=== PATIENT | male | born 1965 | race Caucasian/White ===

== ENCOUNTER 2020-04-11 18:39 | Inpatient (IN) ==
--- NOTE | 2020-04-11 18:41 | Emergency Department Note ---
Impression & Plan Acute AR, Chest pain ED Provider Note NAME: ULI EASON AGE: 54 SEX: M : 1965 ARRIVES VIA: Ambulance INFORMANT: Patient, ED PROVIDER(S): Michele Winston MD Chief Complaint: Chest pain HPI: Patient states that chest pain began around 430 PM. 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 Patient states that it did not improve and worsened with exertion and activity. Patient did complain of some nausea and feeling sweaty but denies any vomiting. No infectious symptoms including cough fevers or chills. The patient does use smokeless tobacco but denies any recent alcohol or substance use. Patient does have a family history of father with AR in his 40s. Patient denies any lower extremity swelling. Patient did receive aspirin and 1 nitro in route. The patient had taken a dose of sildenafil 48 hours ago. Patient initially prehospital did have pressures in the systolic 190s. I did receive medical command call prior to arrival and did look it to previous EKGs have recommended 1 sublingual nitro prior to arrival given the patient's very elevated blood pressure. Patient did state initially his pain was 7 out of 10 currently 3 out of 10. ROS: See HPI for pertinent positives and negatives. A total of 10 systems were reviewed and otherwise negative. Past medical history: See below Surgical history: See below Social history: See below Physical Exam: GENERAL: Wearing glasses and a mask, nasal cannula in place. EYE EXAM: Normal conjunctiva. PERRL, no anisocoria and EOM's grossly intact w/o pain. NECK: Supple, no nuchal rigidity, no adenopathy, non-tender. No signs of m eningismus. LUNGS: Clear to auscultation. Normal chest wall mechanics. HEART: NSR, no MRG. ABDOMEN: Abdomen soft, non-tender, normo-active bowel sounds, no masses, no rebound or guarding. BACK: No CVA TTP. SKIN: No rashes and no bruising. UPPER EXTREMITIES: Upper extremities are grossly normal. LOWER EXTREMITIES: Grossly normal, no edema. NEURO EXAM: A&O x3, cranial nerves II-XII grossly intact, normal speech, moves all 4 extremities on command w/o issue. Differential diagnoses: Cardiac ischemia, aortic dissection, pulmonary embolism, pneumothorax, pneumonia, pericarditis, myocarditis, esophageal rupture, GERD, cholecystitis, pancreatitis, musculoskeletal, as well as other pathologies. Course: Patient was seen and evaluated the bedside. Full history physical exam was performed. EKG: Initial prehospital EKG Normal sinus rhythm, rate of 90, normal axis, mild concavity in 3 and aVF but does have reciprocal changes in V2 and V3 with depressions. Repeat prehospital EKG Normal sinus rhythm, rate of 93, normal intervals, normal axis, mild change in depressions in V2 and V3 with persistent concavity in 3 and aVF. In-hospital EKG completed at 1845 does show Normal sinus rhythm, rate of 85, normal intervals, normal axis, worsening concavity inferiorly, worsening depressions and changes anteriorly and laterally. Reciprocal changes are noted. Concerning for acute STEMI. Imaging Studies: Radiology results as stated below per my review in the radiologist's interpretation: Cardiac monitoring: An order was placed for continuous cardiac monitoring. The monitor shows a rate of 86 with sinus rhythm. MDM: Patient did present with concern for chest pain with changes on EKG concerning for evolving changes in acute STEMI once arriving in the emergency department. A heart alert was immediately called, Plavix load was ordered with additional medications to be given in the [facility]. Dr. Stanislav MD interventional cardiology was paged with the heart alert. I did speak to the on-call hospitalist Dr. Tabatha MD. Patient was admitted to the medicine service. Patient had a white count of 13 with a normal H&H and platelet count. The patient's kidney function was unremarkable. The patient's troponin was 0.194. Covid negative. Critical Care: I have personally spent 42 minutes of critical care time in direct management of this patient. This includes bedside care, interpretation of diagnostic studies, and testing, discussion with consultants, patient, and family members, and other require inpatient management activities. This 42 minutes is in excess of all separately billable procedures. Past Med/Surg History Medical History (Updated 04/11/20 @ 20:06 by Michele Winston MD) No pertinent past medical history Surgical History (Updated 04/11/20 @ 20:05 by Michele Winston MD) No pertinent past surgical history Social History (Updated 04/11/20 @ 20:06 by Michele Winston MD) Smoking Status: Current every day smoker Tobacco Type: Smokeless Tobacco (Dip or Chew) Hx Substance Use: No Feels Safe at Home: Yes Allergies Allergies Allergy/AdvReac Type Severity Reaction Status Date / Time No Known Allergies Allergy Verified 10/04/19 10:09 Home Meds Home Medications Medication Instructions Recorded Confirmed No Known Home Medications 10/04/19 10/04/19 Results & Data (ED) Vital Signs Vital Signs - 24 hr 04/11/20 18:45 04/11/20 18:59 04/11/20 19:20 Temperature 37.0 C Temperature Source Oral Pulse Rate 93 H 86 Respiratory Rate 20 20 Blood Pressure 121/74 120/69 Blood Pressure Mean 89 Pulse Oximetry 99 100 98 Oxygen Delivery Method Room Air Room Air Nasal Cannula Oxygen Flow Rate 2 Sepsis Recent Fever Within 48 Hours No Sepsis New/Unexplained Change in Mental Status No Sepsis Action Taken by Nursing No Action Required Home Medications Current Medication List: was personally reviewed by me Laboratory Data Attestation: I reviewed the patient's lab results. Result diagrams: 04/11/20 18:55 04/11/20 18:55 Lab Results 04/11/20 04/11/20 04/11/20 Range/Units 18:50 18:50 18:50 WBC (4.8-10.8) K/uL RBC (4.7-6.1) M/uL Hgb (14.0-18.0) g/dL Hct (42-52) % MCV (80-100) fL MCH (25-34) pg MCHC (32-36) g/dL RDW Std Deviation (36.4-46.3) fL RDW Coeff of Mihai (11.5-14.5) % Plt Count (130-400) K/uL MPV (7.4-10.4) fL Immature Gran % (Auto) % Neut % (Auto) % Lymph % (Auto) % [place] % (Auto) % Eos % (Auto) % Baso % (Auto) % Neut # (Auto) (1.4-6.5) K/uL Lymph # (Auto) (1.2-3.4) K/uL [place] # (Auto) (0.11-0.59) K/uL Eos # (Auto) (0-0.5) K/uL Baso # (Auto) (0-0.2) K/uL Immature Gran # (Auto) (0.00-0.02) K/uL PT (9.0-12.0) Seconds INR (0.9-1.1) APTT (21.0-31.0) Seconds PTT Ratio Sodium (136-145) mmol/L Potassium (3.5-5.1) mmol/L Chloride (98-107) mmol/L Carbon Dioxide (21-32) mmol/L Anion Gap (3-11) BUN (7-18) mg/dl Creatinine (0.6-1.4) mg/dl Est Cr Clr Drug Dosing ml/min Est GFR ( Amer) Est GFR (Non-Af Amer) BUN/Creatinine Ratio (10-20) Glucose (70-99) mg/dl Calcium (8.5-10.1) mg/dl Magnesium (1.8-2.4) mg/dl Total Bilirubin (0.2-1) mg/dl AST (15-37) U/L ALT (12-78) U/L Alkaline Phosphatase (45-117) U/L Total Creatine Kinase (39-308) U/L CK-MB (CK-2) (0.5-3.6) ng/ml CK/CKMB % Calc (0-3.0) Troponin I (0-0.045) ng/ml NT-Pro-B Natriuret Pep (0-900) pg/ml Total Protein (6.4-8.2) gm/dl Albumin (3.4-5.0) gm/dl Globulin (2.5-4.0) gm/dl Albumin/Globulin Ratio (0.9-2) Lipase (73-393) U/L TSH (0.300-4.500) uIu/ml COVID-19 Eval Order Covid19 IDNow [facility] SARS-CoV-2, RNA, NAAT NEGATIVE NEGATIVE (NEGATIVE) 04/11/20 04/11/20 04/11/20 Range/Units 18:55 18:55 18:55 WBC 13.87 H (4.8-10.8) K/uL RBC 5.18 (4.7-6.1) M/uL Hgb 14.2 (14.0-18.0) g/dL Hct 44.0 (42-52) % MCV 84.9 (80-100) fL MCH 27.4 (25-34) pg MCHC 32.3 (32-36) g/dL RDW Std Deviation 43.2 (36.4-46.3) fL RDW Coeff of Mihai 13.9 (11.5-14.5) % Plt Count 236 (130-400) K/uL MPV 9.4 (7.4-10.4) fL Immature Gran % (Auto) 0.2 % Neut % (Auto) 88.1 % Lymph % (Auto) 6.3 % [place] % (Auto) 4.8 % Eos % (Auto) 0.4 % Baso % (Auto) 0.2 % Neut # (Auto) 12.21 H (1.4-6.5) K/uL Lymph # (Auto) 0.88 L (1.2-3.4) K/uL [place] # (Auto) 0.67 H (0.11-0.59) K/uL Eos # (Auto) 0.05 (0-0.5) K/uL Baso # (Auto) 0.03 (0-0.2) K/uL Immature Gran # (Auto) 0.03 H (0.00-0.02) K/uL PT 11.1 (9.0-12.0) Seconds INR 1.1 (0.9-1.1) APTT 25.3 (21.0-31.0) Seconds PTT Ratio 0.9 Sodium 139 (136-145) mmol/L Potassium 4.4 (3.5-5.1) mmol/L Chloride 106 (98-107) mmol/L Carbon Dioxide 26 (21-32) mmol/L Anion Gap 7.0 (3-11) BUN 19 H (7-18) mg/dl Creatinine 1.13 (0.6-1.4) mg/dl Est Cr Clr Drug Dosing 86.9 ml/min Est GFR ( Amer) 83.8 Est GFR (Non-Af Amer) 72.3 BUN/Creatinine Ratio 16.9 (10-20) Glucose 90 (70-99) mg/dl Calcium 9.0 (8.5-10.1) mg/dl Magnesium 2.1 (1.8-2.4) mg/dl Total Bilirubin 0.5 (0.2-1) mg/dl AST 29 (15-37) U/L ALT 46 (12-78) U/L Alkaline Phosphatase 76 (45-117) U/L Total Creatine Kinase 198 (39-308) U/L CK-MB (CK-2) 5.6 H (0.5-3.6) ng/ml CK/CKMB % Calc 2.8 (0-3.0) Troponin I 0.194 H* (0-0.045) ng/ml NT-Pro-B Natriuret Pep 72 (0-900) pg/ml Total Protein 8.2 (6.4-8.2) gm/dl Albumin 4.2 (3.4-5.0) gm/dl Globulin 4.0 (2.5-4.0) gm/dl Albumin/Globulin Ratio 1.0 (0.9-2) Lipase 299 (73-393) U/L TSH 1.920 (0.300-4.500) uIu/ml COVID-19 Eval Order SARS-CoV-2, RNA, NAAT (NEGATIVE) Administered Medications Discontinued Medications Clopidogrel Bisulfate (Clopidogrel Bisulfate 300 Mg Tab) 300 mg PO NOW STA Stop: 04/11/20 18:51 Last Admin: 04/11/20 18:56 Dose: 300 mg Documented by: [id number] Discharge Plan Visit Data Chief Complaint: Chest Pain Stated Complaint: CHEST PAIN ED Provider: Michele Winston Discharge Problem: Acute AR, Chest pain Patient Disposition: Admitted As Inpatient Discharge Instructions Interventions: ED Discharge Assessment Last Done: 04/11/20 19:20 Discharge Problem: Acute AR Qualifiers: Myocardial infarction type: ST elevation myocardial infarction Involved coronary artery: unspecified coronary artery Qualified Code(s): I21.3 - ST elevation (STEMI) myocardial infarction of unspecified site Chest pain Qualifiers: Chest pain type: chest pain due to myocardial ischemia Ischemic chest pain type: unspecified angina pectoris type Qualified Code(s): I25.9 - Chronic ischemic heart disease, unspecified
[2020-04-11] MEDS ORDERED: CLOPIDOGREL BISULFATE 300 MG TAB PO STA (18:50)
[2020-04-11 19:05] LABS: Basophils # (auto) 0.03 K/uL (0-0.2); Basophils % (auto) 0.2 %; Eosinophils # (auto) 0.05 K/uL (0-0.5); Eosinophils % (auto) 0.4 %; Hemoglobin 14.2 g/dL (14.0-18.0); Immature Granulocytes # (auto) 0.03 K/uL (0.00-0.02); Immature Granulocytes % (auto) 0.2 %; Lymphocytes # (auto) 0.88 K/uL (1.2-3.4); Lymphocytes % (auto) 6.3 %; Mean Corpuscular Hemoglobin 27.4 pg (25-34); Mean Corpuscular Hgb Conc 32.3 g/dL (32-36); Mean Corpuscular Volume 84.9 fL (80-100); Mean Platelet Volume 9.4 fL (7.4-10.4); Monocytes # (auto) 0.67 K/uL (0.11-0.59); Monocytes % (auto) 4.8 %; Neutrophils # (auto) 12.21 K/uL (1.4-6.5); Neutrophils % (auto) 88.1 %; Platelet Count 236 K/uL (130-400); RDW Coefficient of Variation 13.9 % (11.5-14.5); RDW Standard Deviation 43.2 fL (36.4-46.3); Red Blood Count 5.18 M/uL (4.7-6.1); White Blood Count 13.87 K/uL (4.8-10.8)
[2020-04-11] MEDS ORDERED: niCARdipine HCL INJ 2.5 MG/ML 10 ML AMP ONE (19:10)
[2020-04-11] MEDS ORDERED: HEPARIN (PORCINE) 1000 UNIT/ML 10 ML (CATH LAB USE ONLY) ONE ×2 (19:10→20:03)
[2020-04-11] MEDS ORDERED: MIDAZOLAM HCL 1 MG/ML 2ML VIAL ONE ×2 (19:10→19:33)
--- NOTE | 2020-04-11 19:10 | Pre Anesthesia Assessment ---
Date of Service April 11, 2020 Pre Sedation Assessment Vital Signs Temp Pulse Resp BP Pulse Ox 04/11/20 18:59 100 04/11/20 18:45 98.6 F 93 H 20 121/74 99 Cardiovascular RRR, no murmur, no edema Respiratory normal respiratory effort, lungs clear to auscultation Pre-Sedation Airway Assessment Smoking Status: Never smoker Hx Sleep Apnea: No Hx Difficult Intubation: No Short, Thick Neck: No Thyromental Distance: > or= 3.5 Finger Breadths Oral Cavity: + WNL Mallampati Class: III ASA: ASA3 Procedure Planning Contraindications for Sedation: none Current Medications Reviewed: Yes Notes The planned sedation has been discussed with the patient. Informed Consent was obtained. I have identified the patient, determined the appropriateness of sedation and have assessed the patient immediately prior to the procedure. All medicine(s) and interventions are by my order.
[2020-04-11] MEDS ORDERED: fentaNYL citrate 100 MCG/2 ML VIAL ONE ×2 (19:11→19:58)
[2020-04-11] MEDS ORDERED: NITROGLYCERIN/D5W 100MCG/ML 20ML SYR ONE (19:11)
[2020-04-11 19:16] LABS: INR 1.1 (0.9-1.1); Partial Thromboplastin Ratio 0.9; Partial Thromboplastin Time 25.3 Seconds (21.0-31.0); Prothrombin Time 11.1 Seconds (9.0-12.0)
--- NOTE | 2020-04-11 19:16 | Cardiology Consultation ---
Date of Consultation April 11, 2020 Assessment & Plan (1) Acute WA: Presentation consistent with posterior STEMI and recommend proceeding with emergent cardiac catheterization and likely primary PCI. No apparent contraindications to procedure. Discussed risks, benefits, alternatives of procedure with patient and they are willing to proceed. Further recommendations pending findings of coronary angiography. History of Present Illness History of Present Illness Mr. Daniel is a 54-year-old man here with acute chest pain and ECG concerning for acute WA. Patient seen emergently in the ED after heart alert activated upon arrival. No prior cardiac history. Cardiac risk factors include a family history of premature coronary disease involving his father, first coronary event age 49. Other medical issues include osteoarthritis. On no medications. 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 Describes substernal pain radiating to his back. No associated shortness of breath, nausea, diaphoresis. Has never had similar pain in the past. Chest pain at its worst was a 7 out of 10, better after sublingual nitroglycerin in the ambulance. Presently chest pain 3 out of 10. Hemodynamically stable. EKG subtle inferior ST elevation and deep ST depressions in V1-V4 concerning for posterior STEMI. Allergies Allergy/AdvReac Type Severity Reaction Status Date / Time No Known Allergies Allergy Verified 10/04/19 10:09 Home Medications Medication Instructions Recorded Confirmed Type No Known Home Medications 10/04/19 10/04/19 History Patient History Medical History (Updated 04/11/20 @ 20:06 by Michele Winston MD) No pertinent past medical history Surgical History (Updated 04/11/20 @ 20:05 by Michele Winston MD) No pertinent past surgical history Social History (Updated 04/11/20 @ 20:06 by Michele Winston MD) Smoking Status: Current every day smoker Tobacco Type: Smokeless Tobacco (Dip or Chew) Hx Substance Use: No Feels Safe at Home: Yes Review of Systems Review of Systems: All systems reviewed & are unremarkable except as noted in HPI & below Physical Exam Physical Exam: General: Comfortable, no acute distress HEENT: Sclerae anicteric, mucous membranes moist Lungs: Clear to auscultation bilaterally Cardiac: Regular rate and rhythm, no murmurs. Abdomen: Soft, nontender, nondistended, positive bowel sounds. Extremities: Warm, well perfused, no edema. 2+ radial pulses Skin: No rashes or lesions. Neuro: Nonfocal Psych: Alert orient x3, normal affect and mood Results & Data ([facility]) Vital Signs (Past 12 Hours) Vital Signs Temp Pulse Resp BP Pulse Ox 04/11/20 18:59 100 04/11/20 18:45 98.6 F 93 H 20 121/74 99 PG Care Time/CCT Total # of Minutes Spent Total Time Spent with Patient: Total time spent is greater than 50% in coordination of care (as documented) at patient's floor/unit and/or counseling patient: Coding Level of Care Code 90261 Inpt Consult Level 4 Diagnoses Acute WA I21.9
--- NOTE | 2020-04-11 19:20 | Cardiac Catheterization ---
ACC Data: [employer] Cardiac Status Clinical evaluation leading to the procedure CAD Presenation: STEMI Anginal Classification: CCS IV Heart Failure: No Cardiogenic Shock within 24 Hours: No Cardiac Arrest within 24 Hours: No Imaging Studies Past 6 Months: No Stress Studies Past 6 Months: No Diagnostic Physicians Name: Romeo Colorado MD Status: Emergency Closure Device Percutaneous Entry Location: Radial Closure Device: Radial Band Recommendations: PCI without planned CABG PCI Indication: Immediate PCI for STEMI First Noted: First EKG Lesion Segment Name: Ostial circumflex Culprit Artery: Yes Stenosis Prior to Rx (%): 100 Chronic Total Occlusion: No IVUS: Yes FFR: No Pre-Procedure BRIGID Flow: 0 Previously Treated Lesion: No Lesion Complexity: High/C Lesion Length (mm): 15 Thrombus Present: Yes Bifurcation Lesion: Yes Guidewire Across Lesion: Stenosis Post-Procedure (%): 0 Post-Procedure BRIGID Flow: 3 Devices(s) Deployed: Yes Yes Lesion #2 Segment Name: Proximal D1 Culprit Artery: No Stenosis Prior to Rx (%): 90 Chronic Total Occlusion: No IVUS: No FFR: No Pre-Procedure BRIGID Flow: 3 Previously Treated Lesion: No Lesion Complexity: Non-High/Non-C Lesion Length (mm): 12 Thrombus Present: No Bifurcation Lesion: Yes Guidewire Across Lesion: Yes Stenosis Post-Procedure (%): 0 Post-Procedure BRIGDI Flow: 3 Devices(s) Deployed: Yes Intraprocedure Events Significant Disection: No Perforation: No Cardiac Cath Procedure Full Procedure Date April 11, 2020 Pre-Procedure Diagnosis Pre-Procedure Diagnosis: STEMI AUC Score AUC Score: 9 Post-Procedure Diagnosis Post-Procedure Diagnosis: Severe CAD and Successful PCI Procedure(s) Performed Procedure(s) Performed: Coronary Angiography, Left Heart Cath, Drug Eluting Stent and IVUS [place] Romeo Colorado MD Credit Balance Specialist(s) Christiano Estimated Blood Loss Estimated Blood Loss: 15 Medication(s) Medication(s): Dopamine, Fentanyl, Heparin, Integrilin, Lidocaine 1%, Nicardipine, Nitroglycerin, Norepinephrine and Versed Medication(s): Ticagrelor Summary of Findings Indication: STEMI/Heart Alert Access: 6R right radial artery Catheters: Dearing, EBU 3.5 guide Findings: LM -normal caliber, calcified, luminal irregularities LAD -medium caliber, 40% ostial, diffuse 30% proximal to mid disease, distal vessel without significant disease and wraps on apex. Large first diagonal with 90% proximal stenosis Circumflex -large caliber, 100% acute ostial occlusion RCA -dominant, large caliber, 30% lateproximal, 40% mid. PDA without significant disease. LVEDP -21 -- PCI -- Antithrombotic therapy: Heparin, Brilinta, Integrilin Procedure: Left main cannulated with EBU 3.5 guide Signal Repairer 50 wire passed across lesion into distal OM BMW wire placed in the LAD Proximal circumflex lesion predilated with 3.0 compliant balloon Dilated lesion stented with 3.5 x 18 mm Xience Harriet drug-eluting Brea IVUS pullback revealed mildly underexpanded stent proximally, without complete apposition at distal aspect. Stent post-dilated with 3.75 noncompliant balloon IC vasodilators administered for spasm IVUS used to assess ostium of LADluminal regularities in left main, mild nonobstructive calcified disease in proximal LAD Prowater wire placed into first diagonal Proximal diagonal dilated with 2.0 balloon First diagonal stented with 2.5 x 15 mm Xience MARITA Stent postdilated with stent balloon. Stent well expanded with BRIGID-3 flow in diagonal, LAD. Repeat angiography revealed some haziness in proximal aspect of initial circumflex stent Prowater wire placed back into circumflex, repeat IVUS revealed minimal thrombus inside stent Repeat angioplasty to stent with 3.75 NC and given 1 dose of IC Integrilin. Post procedure BRIGID 3 flow throughout, stents well expanded and no apparent cardiac complications. During procedure with reestablish circumflex flow became bradycardic requiring atropine and hypotensive requiring transient dopamine and later norepinephrine. Vasopressors weaned off at completion of case. Arterial Closure: TR band Summary: 1. Posterior STEMI/acute 100% ostial circumflex occlusion 2. Multivessel non-culprit coronary artery disease -90% proximal D1 40% mid RCA 3. Mildly elevated intracardiac filling pressure 4. Transient cardiogenic shock 5. Successful PCI of ostial/proximal circumflex with single drug-eluting stent (3.5 x 18 mm Xience; postdilated with 3.75 NC). 6. Successful PCI of ostial/proximal first diagonal with single drug-eluting stent (2.5 x 15 mm Xience). Recommendations: Admit to ICU for continued monitoring Loaded with ticagrelor 180 mg in [employer] Manager Continue Integrilin for 4 hours. Continue dual-antiplatelet therapy for at least 1 year. Trend troponins until peak, Check Echo Uptitrate beta-johanna/BUCKY as BP allows High-dose statin Consult cardiac Rehab Hemodynamics Rest Ao:: Final Ao: LV: Recommendations Recommendations: PCI without planned CABG Specimens Specimens: None Radiation Exposure (mGy) 4994 Contrast (mls) 200 Fluids (cc crystalloids) Fluids (cc crystalloids): 1280 Drains Drains: none Anesthesia moderate Procedural Complication(s) None Disposition ICU I attest to the content of the Intraoperative Record and any orders documented therein. Any exceptions are noted below. [id number] Card Cath Procedure Codes Cardiac Catheterization Procedure 1: Cardiovascular Cath Procedures: 20194 Coronaries and LHC (+/-LV) Therapeutic Services & Ancillary Proc Procedure 1: Cardiovascular Tx and Anc Procedures: 49081 IV Ultrasound (Coronary or Graft) Procedure 2: Cardiovascular Tx and Anc Procedures: 89912 IV Ultrasound Ea addl vessel Moderate Sedation Procedure 1: Sedation/Anesthesia: 20362 Mod Sedation by the same physician;Init15 Min Child Age 5 & Up Procedure 2: Sedation/Anesthesia: 48098 Mod Sedation by the same physician; Ea [id number] Minutes Stenting Procedure 1: Cardiovascular Stent Procedures: 58501 Perc transluminal revascularization of acute sub/total occl, aMI PG Care Time/CCT Total # of Minutes Spent Total Time Spent with Patient: Total time spent is greater than 50% in coordina tion of care (as documented) at patient's floor/unit and/or counseling patient:
[2020-04-11 19:24] LABS: Albumin Level 4.2 gm/dl (3.4-5.0); BUN Creatinine Ratio 16.9 (10-20); Creatinine Clr Calc Pharmacy 86.9 ml/min; Est GFR (African American) 83.8; Est GFR (Non-African American) 72.3; Magnesium 2.1 mg/dl (1.8-2.4); Potassium 4.4 mmol/L (3.5-5.1)
[2020-04-11 19:40] LABS: Bilirubin,Total 0.5 mg/dl (0.2-1); Creatine Kinase MB 5.6 ng/ml (0.5-3.6); Thyroid Stimulating Hormone 1.92 uIu/ml (0.300-4.500); Total Protein 8.2 gm/dl (6.4-8.2); Troponin I 0.194 ng/ml (0-0.045)
[2020-04-11] MEDS ORDERED: ATROPINE SULFATE 0.1 MG/ML 10ML SYR IV ONE (19:50)
[2020-04-11] MEDS ORDERED: DOPamine 400MG / 250ML D5W (Cath Lab Use ONLY) ONE (19:53)
[2020-04-11] MEDS ORDERED: NOREPINEPHRINE BITARTRATE 1 MG/ML 4 ML VIAL (CATH LAB USE ONLY) ONE (20:00)
[2020-04-11] MEDS ORDERED: EPTIFIBATIDE 2 MG/ML 10 ML VIAL (CATH LAB USE ONLY) IV ONE (20:43)
[2020-04-11] MEDS ORDERED: TICAGRELOR 90 MG TAB PO ONE (20:53)
[2020-04-11] MEDS ORDERED: EPTIFIBATIDE BOLUS/DRIP IV STA (21:04)
[2020-04-11] MEDS ORDERED: NITROGLYCERIN SL 0.4 MG/TAB TAB SL PRN (21:04)
[2020-04-11] MEDS ORDERED: ACETAMINOPHEN 325 MG TAB PO PRN (21:04)
[2020-04-11] MEDS ORDERED: ICU PROTOCOL FOR HYPERGLYCEMIA PRN (21:10)
[2020-04-11] MEDS ORDERED: SODIUM CHLORIDE 0.9% 1000ML 1,000 ML IV SCH (21:15)
[2020-04-11] MEDS ORDERED: EPTIFIBATIDE 75 MG/100 ML VIAL IV SCH (21:15)
--- NOTE | 2020-04-11 22:21 | Critical Care Consultation ---
Date of Consultation April 11, 2020 Assessment & Plan (1) STEMI (ST elevation myocardial infarction): Impression: 54-year-old male with posterior STEMI now presents to the ICU status post PCI x2 with MARITA x1 to the ostial/proximal circumflex and MARITA x1 to the first diagonal coronary arteries. Has since been weaned off oxygen and vasopressors. Neuro - Alert and oriented. Received Versed and fentanyl during cath. Cardiac - STEMIST elevation noted in inferior leads with ST depression in V1 to V4 on initial EKG. Initial troponin 0 0.194 -S/p successful PCI with MARITA x1 to the ostial/proximal circumflex and MARITA x1 to the first diagonal coronary arteries as noted above. -Loaded with Brilinta in the [facility] and arrives to the ICU on Integrilin drip for 4 hours -Patient appeared to be in cardiogenic shock in the [facility] and was temporarily started on Levophed drip which has since been weaned post-cath -Follow-up echo in a.m. -Patient to remain in ICU overnight -Follow-up A1c and lipid panel -Maximize electrolytes -We will start aspirin, Brilinta, Lipitor, MTP, lisinopril regimen -Continuous monitoring on telemetry Respiratory - Currently maintaining sats on room air, no respiratory distress, no history of pulmonary disease GI - Heart healthy diet RENAL/LYTES - Creatinine within normal limits Continue NSS 100 mL/h Monitor routine BMPs, replete electrolytes as indicated - Strict I's and O's ENDO - No history of diabetes or thyroid disease Follow-up A1c ICU hyperglycemic protocol TSH within normal limits HEME - H&H within normal limits, monitor routine CBCs ID - No indication for infectious process at this time LINES/IV ACCESS - Peripheral IVs DVT PROPHYLAXIS - SCDs, hold anticoagulation for now as patient is currently on Integrilin drip Thank you for allowing us to participate in the care of this patient. Please refer to my attending physician's documentation for any further recommendations. (2) Osteoarthritis of both knees: (3) Acute [place]: (4) Chest pain: (5) CAD (coronary artery disease): (6) Cardiogenic shock: History of Present Illness Attending Physician: Kiran Wheatley MD History of Present Illness Mr. Daniel is a 54-year-old male without significant past medical history who presented to the emergency department with acute onset of constant substernal chest pain with radiation to the back, that started about 2 hours prior to arrival while he was at work, and did not subside with rest. Patient reports this is never happened before. He does have a family history of CAD wi th early from his father. He was given sublingual nitro in the ambulance, EKG showed inferior ST elevation and ST depressions in V1 to V4. Heart alert was initiated and patient taken to [facility] where he was found to have 100% occlusion of ostial circumflex and 90% proximal D1. He received successful PCI of ostial/proximal circumflex with MARITA x1 and first diagonal with single MARITA x1. He was loaded with Brilinta in the [facility], and arrived ICU on Integrilin drip. He was temporarily on Levophed in the [facility] [facility] which is since been weaned off prior to arrival to the ICU. On exam patient is alert and oriented and appears comfortable. He currently denies any chest pain, palpitations, shortness of breath, nausea or vomiting, dizziness or syncope, abdominal pain. He denies recent illnesses or exposure to anyone with COVID-19. He had a negative COVID-19 test in the emergency department as well. He is currently maintaining sats on room air and is currently asymptomatic from all prior symptoms. Blood pressure does remain soft but currently no indication for additional use of vasopressors. Patient to remain in ICU overnight for continued monitoring. Will likely be able to downgrade tomorrow if no acute events overnight. Allergies Allergy/AdvReac Type Severity Reaction Status Date / Time No Known Allergies Allergy Verified 10/04/19 10:09 Home Medications Medication Instructions Recorded Confirmed Type No Known Home Medications 10/04/19 10/04/19 History Patient History Medical History (Updated 04/11/20 @ 22:11 by MICHELLE Pedersen) No pertinent past medical history Surgical History (Updated 04/11/20 @ 20:05 by Michele Winston MD) No pertinent past surgical history Social History (Updated 04/11/20 @ 20:06 by Michele Winston MD) Smoking Status: Never smoker Tobacco Type: Smokeless Tobacco (Dip or Chew) Hx Alcohol Use: Yes Alcohol type: beer Hx Substance Use: No Preferred Language: Italian Communication Ability: Effective Examiner Of Currency Required: No Beliefs That Will Affect Care: None Current Living Situation: Significant Other Other Information That Helps Us Care for You: No Feels Safe at Home: Yes Safety Concerns: Feels Safe At This Time Assistive Devices: Glasses Review of Systems Review of Systems: All systems reviewed & are unremarkable except as noted in HPI & below Physical Exam Constitutional: cooperative and comfortable Eyes: PERRL, conjunctivae normal, anicteric sclerae ENMT: external ear and nose normal, oropharynx normal Neck: trachea midline, no thyromegaly Respiratory: normal respiratory effort, lungs clear to auscultation Cardiovascular: RRR, no murmur, no edema Heart Sounds: normal S1 and normal S2 Vessels: normal peripheral pulses; no JVD Extremities: normal capillary refill; no edema Gastrointestinal (Abdomen): normal bowel sounds, soft, nontender, no hepatosplenomegaly Musculoskeletal: no cyanosis or clubbing, extremities motor strength 5/5 Skin: no rashes, warm and dry Neurologic: PERRL, EOMI, accommodation nl, no face palsy, no dysarthria Psychiatric: A+Ox3, euthymic affect Results & Data Results & Data ([facility]) Vital Signs (Past 12 Hours) Vital Signs Temp Pulse Pulse Resp BP BP Pulse Ox 04/11/20 21:45 83 17 96/64 L 93 04/11/20 21:30 82 21 93/62 L 91 04/11/20 21:26 87 21 85/65 L 91 04/11/20 21:24 36.8 C 89 86 22 85/62 L 85/62 L 92 04/11/20 19:20 86 20 120/69 98 04/11/20 18:59 100 04/11/20 18:45 37.0 C 93 H 20 121/74 99 Coding Level of Care Code 90770 Office/OBS Consult Lvl 5 Diagnoses STEMI (ST elevation myocardial infarction) I21.3 Osteoarthritis of both knees M17.0 Acute NJ I21.3 Involved coronary artery: unspecified coronary artery Myocardial infarction type: ST elevation myocardial infarction Chest pain I25.9 Chest pain type: chest pain due to myocardial ischemia Ischemic chest pain type: unspecified angina pectoris type CAD (coronary artery disease) I25.10 Cardiogenic shock R57.0 (1) Acute [place] Involved coronary artery: unspecified coronary artery Myocardial infarction type: ST elevation myocardial infarction Qualified Code(s): I21.3 - ST elevation (STEMI) myocardial infarction of unspecified site (2) Chest pain Chest pain type: chest pain due to myocardial ischemia Ischemic chest pain type: unspecified angina pectoris type Qualified Code(s): I25.9 - Chronic ischemic heart disease, unspecified
[2020-04-11] MEDS ORDERED: SODIUM CHLORIDE 0.9% 1000ML 1,000 ML IV ONE (23:19)
[2020-04-11] MEDS ORDERED: STAT IV Infusion **Titration per Protocol STA (23:31)
[2020-04-11] MEDS: ONDANSETRON INJ 2 MG/ML 2 ML VIAL IV PRN (23:39)
[2020-04-11 23:41] LABS: Hematocrit (blood only) 39.8 % (42-52); Hemoglobin 13.1 g/dL (14.0-18.0); Mean Corpuscular Hemoglobin 27.9 pg (25-34); Mean Corpuscular Hgb Conc 32.9 g/dL (32-36); Mean Corpuscular Volume 84.7 fL (80-100); Mean Platelet Volume 9.3 fL (7.4-10.4); Platelet Count 238 K/uL (130-400); RDW Coefficient of Variation 13.9 % (11.5-14.5); RDW Standard Deviation 43.6 fL (36.4-46.3); White Blood Count 12.31 K/uL (4.8-10.8)
[2020-04-11] MEDS: NOREPINEPHRINE/D5W 8 MG/508 ML BAG IV SCH (23:41)
[2020-04-11 23:58] LABS: BUN Creatinine Ratio 19.9 (10-20); Calcium 8.3 mg/dl (8.5-10.1); Creatinine Clr Calc Pharmacy 106.8 ml/min; Est GFR (African American) 107.4; Est GFR (Non-African American) 92.6; Magnesium 2.1 mg/dl (1.8-2.4); Potassium 4.3 mmol/L (3.5-5.1)
[2020-04-12] MEDS: ONDANSETRON INJ 2 MG/ML 2 ML VIAL IV PRN (00:07)
[2020-04-12 03:15] LABS: Basophils # (auto) 0.02 K/uL (0-0.2); Basophils % (auto) 0.2 %; Eosinophils # (auto) 0.03 K/uL (0-0.5); Eosinophils % (auto) 0.3 %; Hematocrit (blood only) 40.2 % (42-52); Hemoglobin 13.1 g/dL (14.0-18.0); Immature Granulocytes # (auto) 0.02 K/uL (0.00-0.02); Immature Granulocytes % (auto) 0.2 %; Lymphocytes # (auto) 0.78 K/uL (1.2-3.4); Lymphocytes % (auto) 8.4 %; Mean Corpuscular Hemoglobin 27.7 pg (25-34); Mean Corpuscular Hgb Conc 32.6 g/dL (32-36); Mean Platelet Volume 9.1 fL (7.4-10.4); Monocytes # (auto) 0.59 K/uL (0.11-0.59); Monocytes % (auto) 6.4 %; Neutrophils # (auto) 7.83 K/uL (1.4-6.5); Neutrophils % (auto) 84.5 %; Platelet Count 211 K/uL (130-400); RDW Standard Deviation 44.1 fL (36.4-46.3); Red Blood Count 4.73 M/uL (4.7-6.1); White Blood Count 9.27 K/uL (4.8-10.8)
[2020-04-12] MEDS ORDERED: SODIUM CHLORIDE 0.9% 500 ML IV SCH (03:30)
[2020-04-12 03:36] LABS: BUN Creatinine Ratio 17.1 (10-20); Calcium 8.1 mg/dl (8.5-10.1); Creatinine Clr Calc Pharmacy 106.8 ml/min; Est GFR (African American) 107.4; Est GFR (Non-African American) 92.6; Potassium 3.9 mmol/L (3.5-5.1)
[2020-04-12] MEDS: POTASSIUM CHLORIDE / WTR 10 MEQ/100 ML PLCT IV SCH ×4 (03:58→07:33)
--- NOTE | 2020-04-12 04:38 | History & Physical Report ---
Date of Service April 12, 2020 Assessment & Plan (1) Admitted to intensive care unit: Admission to intensive care unit status post STEMI and placement of 2 coronary artery stents as noted in interventionalist Dr. Borden's note. Present on Admission?: Yes (2) Cardiogenic shock: Patient was noted to have hypotension during procedure, was initially able to be titrated off of Levophed while in the cath suite. After admission to the ICU, patient again became hypotensive, and required reinitiation of Levophed. Present on Admission?: Yes (3) CAD (coronary artery disease): CAD/STEMI/coronary artery stent placement x2- Postprocedure medications per Dr. Colorado. 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 Primary Care Provider: NO PCP The patient is a 54-year-old male with no significant past medical history, who presented to the emergency department as noted above. He did receive aspirin and 1 nitroglycerin sublingual in route. EKG did suggest an acute NJ, heart alert was called, and patient was taken to the cardiac Analytical Chemist by interventionalist Dr. Romeo Colorado. Allergies Allergy/AdvReac Type Severity Reaction Status Date / Time No Known Allergies Allergy Verified 10/04/19 10:09 Home Medications Medication Instructions Recorded Confirmed Type No Known Home Medications 10/04/19 10/04/19 History Past Med/Surg History Medical History (Updated 04/12/20 @ 04:34 by Kiran Wheatley MD) No pertinent past medical history Surgical History (Updated 04/12/20 @ 04:34 by Kiran Wheatley MD) No pertinent past surgical history Social History (Updated 04/11/20 @ 20:06 by Michele Winston MD) Smoking Status: Never smoker Tobacco Type: Smokeless Tobacco (Dip or Chew) Hx Alcohol Use: Yes Alcohol type: beer Hx Substance Use: No Preferred Language: Icelandic Communication Ability: Effective Supervising Librarian Required: No Beliefs That Will Affect Care: None Current Living Situation: Significant Other Other Information That Helps Us Care for You: No Feels Safe at Home: Yes Safety Concerns: Feels Safe At This Time Assistive Devices: Glasses Review of Systems Review of Systems: The patient denies palpitations, cough, lower extremity swelling, sore throat, fevers, chills, vomiting, diarrhea , constipation, abdominal pain, pelvic pain, blood in urine or stool, dysuria, urinary frequency or urgency, lightheadedness, dizziness, headache, memory loss, loss of consciousness, rash, abnormal bruising or bleeding, imbalance, focal or generalized weakness, numbness or tingling in legs, generalized arthralgias or myalgias, back or neck pain, or night sweats. The review of systems is otherwise negative other than for that already noted above, and at least 10 systems have been reviewed. Physical Exam Physical Exam: The patient is awake, alert and oriented 3, well developed and well nourished, normocephalic and atraumatic, seen post catheterization, lying in bed and in no acute distress. HEENT--PERRL, EOMI, mucous membranes and oropharynx dry. Neck--supple. No JVD. No bruits. Thyroid normal, trachea midline, no adenopathy. Heart--normal S1 and S2. No murmurs, rubs or gallops. Lungs--clear bilaterally, no respiratory distress, no accessory muscle use. Abdomen--normal bowel sounds and soft. Nontender. Nondistended, no hernias or masses, no organomegaly. Extremities--no cyanosis or clubbing. No edema. There are good distal pulses b/l. Dermatologic--normal skin turgor, normal color, no abnormal lymph nodes, no rash. Neurologic--cranial nerves II through XII grossly intact. Rheumatologic--limited exam Psychiatric--normal affect. Results & Data Results & Data ([facility]) Vital Signs (Past 12 Hours) Vital Signs Temp Pulse Pulse Resp BP BP Pulse Ox 04/12/20 03:30 98.6 F 04/12/20 03:15 82 18 84/62 L 94 04/12/20 03:00 89 16 94/61 L 94 04/12/20 02:45 78 16 103/47 L 94 04/12/20 02:40 84 04/12/20 02:30 78 22 107/71 97 04/12/20 02:15 80 20 98/69 L 96 04/12/20 02:00 84 25 H 104/72 96 04/12/20 01:45 80 20 106/77 96 04/12/20 01:40 73 04/12/20 01:30 73 21 105/74 97 04/12/20 01:15 74 21 109/77 97 04/12/20 01:00 68 18 103/76 97 04/12/20 00:45 76 19 104/78 96 04/12/20 00:40 73 04/12/20 00:30 73 20 102/69 97 04/12/20 00:15 67 20 106/75 98 04/12/20 00:00 98.1 F 70 04/11/20 23:56 70 21 101/62 98 04/11/20 23:46 71 19 76/53 L 95 04/11/20 23:40 60 04/11/20 23:35 66 23 71/47 L 95 04/11/20 23:31 63 23 61/46 L 97 04/11/20 23:24 60 22 64/44 L 97 04/11/20 23:20 62 19 65/40 L 98 04/11/20 23:15 73 16 61/47 L 98 04/11/20 23:00 75 20 82/57 L 96 04/11/20 22:45 83 20 86/60 L 97 04/11/20 22:40 77 04/11/20 22:35 77 20 87/58 L 98 04/11/20 22:31 88 20 71/49 L 96 04/11/20 22:18 89 23 90/48 L 94 04/11/20 22:16 75 22 77/44 L 95 04/11/20 22:10 79 04/11/20 22:00 79 22 89/62 L 92 04/11/20 21:45 83 17 96/64 L 93 04/11/20 21:40 83 04/11/20 21:30 82 21 93/62 L 91 04/11/20 21:26 87 21 85/65 L 91 04/11/20 21:24 98.2 F 89 86 22 85/62 L 85/62 L 92 04/11/20 19:20 86 20 120/69 98 04/11/20 18:59 100 04/11/20 18:45 98.6 F 93 H 20 121/74 99 Laboratory Results Laboratory Results WBC 9.27 K/uL (4.8-10.8) 04/12/20 02:58 RBC 4.73 M/uL (4.7-6.1) 04/12/20 02:58 Hgb 13.1 g/dL (14.0-18.0) L 04/12/20 02:58 Hct 40.2 % (42-52) L 04/12/20 02:58 MCV 85.0 fL (80-100) 04/12/20 02:58 MCH 27.7 pg (25-34) 04/12/20 02:58 MCHC 32.6 g/dL (32-36) 04/12/20 02:58 RDW Std Deviation 44.1 fL (36.4-46.3) 04/12/20 02:58 RDW Coeff of Mihai 14.0 % (11.5-14.5) 04/12/20 02:58 Plt Count 211 K/uL (130-400) 04/12/20 02:58 MPV 9.1 fL (7.4-10.4) 04/12/20 02:58 Immature Gran % (Auto) 0.2 % 04/12/20 02:58 Neut % (Auto) 84.5 % 04/12/20 02:58 Lymph % (Auto) 8.4 % 04/12/20 02:58 Owen % (Auto) 6.4 % 04/12/20 02:58 Eos % (Auto) 0.3 % 04/12/20 02:58 Baso % (Auto) 0.2 % 04/12/20 02:58 Neut # (Auto) 7.83 K/uL (1.4-6.5) H 04/12/20 02:58 Lymph # (Auto) 0.78 K/uL (1.2-3.4) L 04/12/20 02:58 Owen # (Auto) 0.59 K/uL (0.11-0.59) 04/12/20 02:58 Eos # (Auto) 0.03 K/uL (0-0.5) 04/12/20 02:58 Baso # (Auto) 0.02 K/uL (0-0.2) 04/12/20 02:58 Immature Gran # (Auto) 0.02 K/uL (0.00-0.02) 04/12/20 02:58 PT 11.1 Seconds (9.0-12.0) 04/11/20 18:55 INR 1.1 (0.9-1.1) 04/11/20 18:55 APTT 25.3 Seconds (21.0-31.0) 04/11/20 18:55 PTT Ratio 0.9 04/11/20 18:55 Activ Coag Time Kaolin 285 SECONDS (94-140) H 04/11/20 20:58 Sodium 139 mmol/L (136-145) 04/12/20 02:58 Potassium 3.9 mmol/L (3.5-5.1) 04/12/20 02:58 Chloride 109 mmol/L (98-107) H 04/12/20 02:58 Carbon Dioxide 25 mmol/L (21-32) 04/12/20 02:58 Anion Gap 5.0 (3-11) 04/12/20 02:58 BUN 16 mg/dl (7-18) 04/12/20 02:58 Creatinine 0.92 mg/dl (0.6-1.4) 04/12/20 02:58 Est Cr Clr Drug Dosing 106.8 ml/min 04/12/20 02:58 Est GFR ( Amer) 107.4 04/12/20 02:58 Est GFR (Non-Af Amer) 92.6 04/12/20 02:58 BUN/Creatinine Ratio 17.1 (10-20) 04/12/20 02:58 Glucose 112 mg/dl (70-99) H 04/12/20 02:58 POC Glucose 107 mg/dl (70-99) H 04/11/20 23:58 Calcium 8.1 mg/dl (8.5-10.1) L 04/12/20 02:58 Magnesium 2.1 mg/dl (1.8-2.4) 04/11/20 23:29 Total Bilirubin 0.5 mg/dl (0.2-1) 04/11/20 18:55 AST 29 U/L (15-37) 04/11/20 18:55 ALT 46 U/L (12-78) 04/11/20 18:55 Alkaline Phosphatase 76 U/L (45-117) 04/11/20 18:55 Total Creatine Kinase 198 U/L (39-308) 04/11/20 18:55 CK-MB (CK-2) 5.6 ng/ml (0.5-3.6) H 04/11/20 18:55 CK/CKMB % Calc 2.8 (0-3.0) 04/11/20 18:55 Troponin I 41.500 ng/ml (0-0.045) H* 04/12/20 02:58 NT-Pro-B Natriuret Pep 72 pg/ml (0-900) 04/11/20 18:55 Total Protein 8.2 gm/dl (6.4-8.2) 04/11/20 18:55 Albumin 4.2 gm/dl (3.4-5.0) 04/11/20 18:55 Globulin 4.0 gm/dl (2.5-4.0) 04/11/20 18:55 Albumin/Globulin Ratio 1.0 (0.9-2) 04/11/20 18:55 Triglycerides 167 mg/dl (0-150) H 04/12/20 02:58 Cholesterol 202 mg/dl (0-200) H 04/12/20 02:58 LDL Cholesterol, Calc 125 mg/dl 04/12/20 02:58 VLDL Cholesterol, Calc 33 mg/dl 04/12/20 02:58 HDL Cholesterol 44 mg/dl 04/12/20 02:58 Cholesterol/HDL Ratio 5 04/12/20 02:58 Lipase 299 U/L (73-393) 04/11/20 18:55 TSH 1.920 uIu/ml (0.300-4.500) 04/11/20 18:55 Nasal Screen MRSA (PCR) Negative (Negative) 04/11/20 22:05 COVID-19 Eval Order Covid19 [facility] 04/11/20 18:50 Hepatitis C Ab Screen Neg (Neg) 04/12/20 02:58 SARS-CoV-2, RNA, NAAT NEGATIVE (NEGATIVE) 04/11/20 18:50 SARS-CoV-2, RNA, NAAT NEGATIVE (NEGATIVE) 04/11/20 18:50 Blood Type B Positive 04/11/20 18:55 Antibody Screen NEGATIVE 04/11/20 18:55 Code Status & VTE Plan Code Status Full code VTE Prophylaxis Plan VTE Prophylaxis will be ordered: Yes Critical Care Time Critical Care Time: Yes Total Critical Care Time: 35 PG Care Time/CCT Total # of Minutes Spent Total Time Spent with Patient: Total time spent is greater than 50% in coordination of care (as documented) at patient's floor/unit and/or counseling patient: Critical Care Time: Yes Total Critical Care Time: 35 Coding Level of Care Code 21171 Initial Inpt Care Lvl 3 Diagnoses Admitted to intensive care unit Z78.9 Cardiogenic shock R57.0 CAD (coronary artery disease) I25.10 STEMI (ST elevation myocardial infarction) I21.3 Status post coronary artery stent placement Z95.5 Lab test negative for COVID-19 virus Z03.818 Additional Codes Critical Care Time - Critical Care Time: Yes ([id number]) Time Spent (min) 35
[2020-04-12] MEDS: ICU ELECTROLYTE REPLACEMENT PROTOCOL SCH ×2 (06:31→17:27)
[2020-04-12 06:47] LABS: Estimated Average Glucose 126 mg/dl
--- NOTE | 2020-04-12 07:57 | Critical Care Progress Note ---
Date of Service April 12, 2020 Assessment & Plan (1) Admitted to intensive care unit: Impression: 54-year-old male presenting with acute myocardial infarction status post drug-eluting stent to the circumflex and first diagonal. Is been mildly hypotensive since returning to the ICU but is having no chest pain. He has had some brief runs of nonsustained VT, likely secondary to reperfusion. His chest x-ray demonstrates a questionable nodule within the right midlung zone. No prior imaging for comparison. Recommendations: 1. Acute [place]: Continue aspirin and Brilinta. Trend troponin until peak. Statins have been ordered. He is ordered an BUCKY inhibitor and beta-johanna however. Will need cardiac rehab discharge. We will try and wean pressors as tolerated to maintain systolic blood pressure greater than or equal to 90. Ideally would like to diurese however given the patient's hemodynamics will hold off for now 2. Reperfusion arrhythmia: We will continue to follow. He was asymptomatic during these episodes with no evidence of hemodynamic instability. Continue to replete electrolytes. Follow-up with echocardiogram. 3. Questionable pulmonary nodule: We will proceed with noncontrast CT of the chest to evaluate this area. 4. Leukocytosis: Now resolved. Suspect reactive to acute OH. 5. Hemoglobin A1c mildly elevated at. Will order telehealth nurse educator to evaluate the patient. Diet controlled. Will need to be followed up with his primary care provider. Glycemic control becomes problematic, sliding scale insulin will be initiated. 6. Disposition per cardiology. We will follow while in ICU and sign off once he leaves the intensive care unit. Feel free to contact us with additional questions (2) STEMI (ST elevation myocardial infarction): (3) Cardiogenic shock: (4) Abnormal CT scan of lung: Admission and Anticipated Discharge Date Admission Date: April 11, 2020 Subjective Patient seen and examined. Discussed with critical care MANJEET from overnight. Chart and imaging reviewed. Discussed with critical care nurse at bedside. Patient states he is feeling well this morning. He denies chest pain palpitations or shortness of breath. No nausea or vomiting but he does not really have an appetite yet. He did have several episodes of nonsustained VT overnight. He was asymptomatic during these episodes and no intervention was required. He is continued to require norepinephrine to maintain systolic blood pressures above 90. Review of Systems Review of Systems: All systems reviewed & are unremarkable except as noted in HPI & below Physical Exam Constitutional: WD/WN, vitals as above Neck: trachea midline, no thyromegaly Respiratory: normal respiratory effort, lungs clear to auscultation Cardiovascular: RRR, no murmur, no edema Gastrointestinal (Abdomen): normal bowel sounds, soft, nontender, no hepatosplenomegaly Musculoskeletal: Extremities: extremities normal to inspection Skin: no rashes, warm and dry Neurologic: Nonfocal exam Lymphatic: no cervical lymphadenopathy Results & Data Results & Data ([facility]) Vital Signs (Past 12 Hours) Vital Signs Temp Pulse Pulse Resp BP BP Pulse Ox 04/12/20 06:30 74 21 92/63 L 98 04/12/20 06:15 81 19 84/60 L 98 04/12/20 06:01 83 20 95/53 L 97 04/12/20 05:45 75 17 90/62 L 96 04/12/20 05:30 70 18 90/63 L 97 04/12/20 05:15 78 20 94/58 L 99 04/12/20 05:00 72 22 102/59 L 98 04/12/20 04:45 75 21 96/56 L 98 04/12/20 04:30 82 21 86/64 L 99 04/12/20 04:15 77 16 97/57 L 97 04/12/20 04:00 79 20 84/64 L 97 04/12/20 03:45 79 20 88/61 L 96 04/12/20 03:30 37 C 78 22 96/66 L 97 04/12/20 03:15 82 18 84/62 L 94 04/12/20 03:00 89 16 94/61 L 94 04/12/20 02:45 78 16 103/47 L 94 04/12/20 02:40 84 04/12/20 02:30 78 22 107/71 97 04/12/20 02:15 80 20 98/69 L 96 04/12/20 02:00 84 25 H 104/72 96 04/12/20 01:45 80 20 106/77 96 04/12/20 01:40 73 04/12/20 01:30 73 21 105/74 97 04/12/20 01:15 74 21 109/77 97 04/12/20 01:00 68 18 103/76 97 04/12/20 00:45 76 19 104/78 96 04/12/20 00:40 73 04/12/20 00:30 73 20 102/69 97 04/12/20 00:15 67 20 106/75 98 04/12/20 00:00 36.7 C 70 04/11/20 23:56 70 21 101/62 98 04/11/20 23:46 71 19 76/53 L 95 04/11/20 23:40 60 04/11/20 23:35 66 23 71/47 L 95 04/11/20 23:31 63 23 61/46 L 97 04/11/20 23:24 60 22 64/44 L 97 04/11/20 23:20 62 19 65/40 L 98 04/11/20 23:15 73 16 61/47 L 98 04/11/20 23:00 75 20 82/57 L 96 04/11/20 22:45 83 20 86/60 L 97 04/11/20 22:40 77 04/11/20 22:35 77 20 87/58 L 98 04/11/20 22:31 88 20 71/49 L 96 04/11/20 22:18 89 23 90/48 L 94 04/11/20 22:16 75 22 77/44 L 95 04/11/20 22:10 79 04/11/20 22:00 79 22 89/62 L 92 04/11/20 21:45 83 17 96/64 L 93 04/11/20 21:40 83 04/11/20 21:30 82 21 93/62 L 91 04/11/20 21:26 87 21 85/65 L 91 04/11/20 21:24 36.8 C 89 86 22 85/62 L 85/62 L 92 Laboratory Results 04/12/20 02:58 04/12/20 02:58 Troponin up to 41 Triglycerides 167 Cholesterol 202 Diagnostic Findings Cardiac cath was reviewed. First diagonal 90% proximal stenosis and circumflex 100% acute ostial occlusion. LVEDP was 21. Successful PCI of the proximal circumflex and first diagonal with drug-eluting stents Chest x-ray from 04/11/2020 was reviewed. Lungs appear well aerated without c onsolidation airspace opacity. Radiologist is indicating a density within the right lower lung field may represent confluence of shadows. Coding Level of Care Code 55538 Subseq Hosp Care Lvl 3 Diagnoses Admitted to intensive care unit Z78.9 STEMI (ST elevation myocardial infarction) I21.3 Cardiogenic shock R57.[address] scan of lung R91.8
--- NOTE | 2020-04-12 07:59 | XRay Report ---
XR chest 1V portable CLINICAL HISTORY: Post Cardiac Cath COMPARISON STUDY: No previous studies for comparison. FINDINGS: The heart is normal in size. There is no failure. There is no lobar consolidation. There is no pneumothorax. No pleural effusions are visualized. There is a subtle 12 mm right midlung zone opa city. CT scanning or short-term radiographic follow-up is recommended.[ IMPRESSION: 1. Subtle nonspecific 12 mm right midlung zone opacity. This could be inflammatory, atelectatic, or n eoplastic. CT scanning or short-term radiographic follow-up is recommended. ACT 112: Positive. There are findings on this exam that require communication between the performing entity and the patient following Patient Test Result Information Act ([place] Act 112) guidelines. Electronically signed by: Solo Evans M.D. 04/12/2020 7:58 AM
[2020-04-12] MEDS ORDERED: METOPROLOL TARTRATE 25 MG TAB PO SCH (09:00)
[2020-04-12] MEDS ORDERED: lisinopril 5 MG TAB PO SCH (09:00)
--- NOTE | 2020-04-12 09:11 | CT Scan Report ---
CT chest wo con CT DOSE: 482.72 mGy.cm CLINICAL HISTORY: 54 years-old Male with pulm nodule. Follow-up study in a patient with possible pul monary nodule of the right midlung TECHNIQUE: Multiaxial CT images of the chest were performed without contrast. A dose lowering techni que was utilized adhering to the principles of ALARA. COMPARISON: Chest radiograph 04/11/2020 FINDINGS: Unremarkable thyroid. Calcified mediastinal lymph nodes. There are numerous nonenlarged sub carinal and paratracheal lymph nodes which are likely neurologic. There are no pathologically enlarge d lymph nodes. Heart is normal in size without pericardial effusion. Extensive coronary artery calcif ications. No thoracic aortic aneurysm. No pneumothorax, pleural effusion or overt edema. Dependent right greater than left linear bibasilar consolidative opacities with additional linear consolidation of the superior segment right lower lobe . Minimal intralobular septal thickening of the lung apices. Unchanged moderate hemidiaphragmatic betina vation. There are no suspicious pulmonary nodules or masses. There is decreased transverse dimension of the upper thoracic trachea at the thoracic inlet resulting in less than 50% luminal narrowing on i mage 19 series 4. Hyperdense material within the gallbladder lumen suggests vicarious excretion of contrast. Cholelithi asis with difficult to exclude. Mild nonspecific distal esophageal wall thickening. Hepatic steatosis . Soft tissues are unremarkable. Bones appear intact. IMPRESSION: 1. Unchanged right hemidiaphragmatic elevation with linear right greater than left bibasilar and righ t midlung linear opacities suggestive of atelectasis/scarring. 2. No suspicious pulmonary nodules or masses. 3. Extensive coronary artery calcifications. 4. Hepatic steatosis. 5. 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 ACT 112: Negative or not required by law. Electronically signed by: Vick Barragan M.D. 04/12/2020 9:09 AM
--- NOTE | 2020-04-12 09:19 | XCELERA ---
[id number] \\[id number]
[2020-04-12 09:48] LABS: Magnesium 2.3 mg/dl (1.8-2.4); Phosphorus 3.3 mg/dl (2.5-4.9)
[2020-04-12] MEDS ORDERED: AMIODARONE IV BOLUS & DRIP IV STA (10:32)
[2020-04-12] MEDS ORDERED: STAT IV Infusion **Titration per Protocol STA (10:32)
[2020-04-12] MEDS ORDERED: 0.2 MICRON FILTER SET 1 EA IV ONE (10:32)
[2020-04-12] MEDS ORDERED: AMIODARONE / D5W 150 MG/100 ML BAG IV ONE (10:45)
[2020-04-12] MEDS: TICAGRELOR 90 MG TAB PO SCH ×2 (10:47→20:35)
[2020-04-12] MEDS: ASPIRIN 81 MG ECTAB PO SCH (10:47)
[2020-04-12] MEDS: ATORVASTATIN 40 MG TAB PO SCH (10:47)
[2020-04-12] MEDS ORDERED: AMIODARONE / D5W 360 MG/200 ML BAG IV ONE (11:00)
--- NOTE | 2020-04-12 12:37 | Cardiology Progress Note ---
Date of Service April 12, 2020 Assessment & Plan (1) STEMI (ST elevation myocardial infarction): -- Post primary PCI with MARITA to ostial circumflex 2. Severe non-culprit CAD -- MARITA to ostial D1 3. Cardiogenic shock 4. Ischemic cardiomyopathy -- EF 45%, severe posterior hypokinesis. 4. Ventricular arrhythmias 5. Dysliipidemia 6. Borderline A1c 7. Question of chest lymphoma post XRT Chest pain free. Persistent hypotension requiring minimal pressors. LVEF relatively preserved but low cardiac output by echo. Well perfused on exam without congestion. Reduced ectopy on amiodarone Renal function stable. No access site complications. -- Continue DAPT with ASA/Ticagrelor -- Continue amiodarone infusion overnight -- Wean off norepi as able -- Try low dose beta-johanna, metoprolol 12.5 today -- BUCKY on hold -- Continue current statin Admission and Anticipated Discharge Date Admission Date: April 11, 2020 Subjective Feeling tired. No additional chest pain/back pain. Breathing comfortable. Borderline BPs requiring continued low dose norepi Runs of NSVT, AIVR and one episode of VT >30 beats self terminated. Started on amiodarone. Review of Systems Review of Systems: All systems reviewed & are unremarkable except as noted in HPI & below Physical Exam Physical Exam: General: Comfortable, no acute distress Eyes: Sclerae anicteric, extraocular movements intact HENT: Oropharynx clear mucous membranes moist Lungs: Clear to auscultation bilaterally, no rhonchi or wheezes Cardiac: Regular rate and rhythm, no murmurs Abdomen: Soft, nontender Neuro: Nonfocal Psych: Alert orient x3, normal affect and mood Extremities/Vascular: -- 2+ radial bilaterally. No RT hematoma. -- No edema Results & Data ([facility]) Vital Signs (Past 12 Hours) Vital Signs Temp Pulse Resp BP Pulse Ox 04/12/20 11:45 71 18 92/59 L 97 04/12/20 11:30 67 21 92/67 L 96 04/12/20 11:15 70 19 79/60 L 96 04/12/20 11:00 71 18 88/62 L 96 04/12/20 10:31 78 18 86/55 L 94 04/12/20 10:15 67 16 93/59 L 97 04/12/20 10:00 67 19 80/57 L 97 04/12/20 09:45 74 16 79/59 L 95 04/12/20 09:30 67 8 L 94/51 L 94 04/12/20 09:00 74 18 86/61 L 95 04/12/20 08:22 85 22 89/64 L 97 04/12/20 08:15 70 15 89/62 L 98 04/12/20 08:00 80 17 102/66 98 04/12/20 07:45 73 17 91/65 L 97 04/12/20 07:30 74 13 97/65 L 97 04/12/20 07:00 72 20 89/61 L 97 04/12/20 06:30 74 21 92/63 L 98 04/12/20 06:15 81 19 84/60 L 98 04/12/20 06:01 83 20 95/53 L 97 04/12/20 05:45 75 17 90/62 L 96 04/12/20 05:30 70 18 90/63 L 97 04/12/20 05:15 78 20 94/58 L 99 04/12/20 05:00 72 22 102/59 L 98 04/12/20 04:45 75 21 96/56 L 98 04/12/20 04:30 82 21 86/64 L 99 04/12/20 04:15 77 16 97/57 L 97 04/12/20 04:00 79 20 84/64 L 97 04/12/20 03:45 79 20 88/61 L 96 04/12/20 03:30 98.6 F 78 22 96/66 L 97 04/12/20 03:15 82 18 84/62 L 94 04/12/20 03:00 89 16 94/61 L 94 04/12/20 02:45 78 16 103/47 L 94 04/12/20 02:40 84 04/12/20 02:30 78 22 107/71 97 04/12/20 02:15 80 20 98/69 L 96 04/12/20 02:00 84 25 H 104/72 96 04/12/20 01:45 80 20 106/77 96 04/12/20 01:40 73 04/12/20 01:30 73 21 105/74 97 04/12/20 01:15 74 21 109/77 97 04/12/20 01:00 68 18 103/76 97 04/12/20 00:45 76 19 104/78 96 04/12/20 00:40 73 PG Care Time/CCT Total # of Minutes Spent Total Time Spent with Patient: Total time spent is greater than 50% in c oordination of care (as documented) at patient's floor/unit and/or counseling patient: Coding Level of Care Code 96297 Subseq Hosp Care Lvl 3 Diagnoses STEMI (ST elevation myocardial infarction) I21.3
[2020-04-12] MEDS: METOPROLOL TARTRATE 25 MG TAB PO SCH (15:10)
[2020-04-12] MEDS: AMIODARONE / D5W 360 MG/200 ML BAG IV SCH (17:18)
[2020-04-13] MEDS: AMIODARONE / D5W 360 MG/200 ML BAG IV SCH (04:45)
[2020-04-13 05:20] LABS: Basophils # (auto) 0.02 K/uL (0-0.2); Basophils % (auto) 0.2 %; Eosinophils # (auto) 0.06 K/uL (0-0.5); Eosinophils % (auto) 0.7 %; Hemoglobin 12.6 g/dL (14.0-18.0); Immature Granulocytes # (auto) 0.02 K/uL (0.00-0.02); Immature Granulocytes % (auto) 0.2 %; Lymphocytes # (auto) 1.03 K/uL (1.2-3.4); Mean Corpuscular Hemoglobin 27.3 pg (25-34); Mean Corpuscular Hgb Conc 32.3 g/dL (32-36); Mean Corpuscular Volume 84.6 fL (80-100); Mean Platelet Volume 9.3 fL (7.4-10.4); Monocytes # (auto) 0.77 K/uL (0.11-0.59); Neutrophils # (auto) 6.66 K/uL (1.4-6.5); Neutrophils % (auto) 77.9 %; Platelet Count 161 K/uL (130-400); RDW Coefficient of Variation 14.2 % (11.5-14.5); RDW Standard Deviation 44.3 fL (36.4-46.3); Red Blood Count 4.61 M/uL (4.7-6.1); White Blood Count 8.56 K/uL (4.8-10.8)
[2020-04-13 05:45] LABS: BUN Creatinine Ratio 12.6 (10-20); Calcium 8.2 mg/dl (8.5-10.1); Creatinine Clr Calc Pharmacy 117.5 ml/min; Est GFR (African American) 115.1; Est GFR (Non-African American) 99.4; Potassium 3.8 mmol/L (3.5-5.1)
[2020-04-13] MEDS: ICU ELECTROLYTE REPLACEMENT PROTOCOL SCH ×2 (06:16→19:53)
[2020-04-13] MEDS: NOREPINEPHRINE/D5W 8 MG/508 ML BAG IV SCH (07:31)
[2020-04-13] MEDS ORDERED: SODIUM CHLORIDE 0.9% 1000ML 500 ML IV ONE (07:57)
--- NOTE | 2020-04-13 07:59 | Critical Care Progress Note ---
Date of Service April 13, 2020 Assessment & Plan (1) Admitted to intensive care unit: Impression: 54-year-old male presenting with acute myocardial infarction status post drug-eluting stent to the circumflex and first diagonal. Is been mildly hypotensive since returning to the ICU but is having no chest pain. He has had some brief runs of nonsustained VT, likely secondary to reperfusion. He is requiring low-dose vasopressors Recommendations: 1. Acute [place]: Continue aspirin and Brilinta. Troponin has peaked at 89 and is now downtrending. Statins have been ordered. He is ordered an BUCKY inhibitor and beta-johanna however. Will need cardiac rehab discharge. We will try and wean pressors as tolerated to maintain systolic blood pressure greater than or equal to 90. Given that his right ventricle demonstrated decrease systolic function I wonder if he may benefit from additional preload. We will provide him a small amount of fluid bolus and see if he responds. If we're unable to wean pressors, he may require a PICC line or central access 2. Reperfusion arrhythmia: We will continue to follow. Amiodarone per cardiology 3. CT of the chest was obtained and the previously suspected pulmonary nodule on the chest x-ray was found to be confluence of shadows. No additional imaging indicated 4. Leukocytosis: Now resolved. Suspect reactive to acute [place]. 5. Hemoglobin A1c mildly elevated at 6. Will order equipment washer to evaluate the patient. Diet controlled. Will need to be followed up with his primary care provider. If glycemic control becomes problematic, sliding scale insulin will be initiated. 6. Disposition per cardiology. Discontinue Candelaria. Out of bed to chair as tolerated. We will follow while in ICU and sign off once he leaves the intensive care unit. Feel free to contact us with additional questions (2) STEMI (ST elevation myocardial infarction): (3) Cardiogenic shock: (4) Abnormal CT scan of lung: Admission and Anticipated Discharge Date Admission Date: April 11, 2020 Subjective Patient seen and examined. Discussed with ICU nurse at bedside. Patient without complaint this morning. Denies chest pain palpitations or shortness of breath. His appetite is poor but no nausea or vomiting. He did have persistent salvos of VT yesterday and was started on amiodarone. Unfortunately he has continued to require vasopressors but at a relatively low dose. Review of Systems Review of Systems: All systems reviewed & are unremarkable except as noted in HPI & below Physical Exam 2 Constitutional: WD/WN, vitals as above Neck: trachea midline, no thyromegaly Respiratory: normal respiratory effort, lungs clear to auscultation Cardiovascular: RRR, no murmur, no edema Gastrointestinal (Abdomen): normal bowel sounds, soft, nontender, no hepatosplenomegaly Musculoskeletal: Extremities: extremities normal to inspection Skin: no rashes, warm and dry Lymphatic: no cervical lymphadenopathy Results & Data Results & Data ([facility]) Vital Signs (Past 12 Hours) Vital Signs Temp Pulse Resp BP Pulse Ox 04/13/20 06:30 65 22 82/53 L 96 04/13/20 06:27 61 14 87/53 L 95 04/13/20 06:00 69 19 83/54 L 96 04/13/20 05:31 36.9 C 75 23 83/59 L 94 04/13/20 05:00 67 15 89/53 L 93 04/13/20 04:30 64 13 96/59 L 95 04/13/20 03:30 63 17 97/61 L 96 04/13/20 03:00 64 19 91/59 L 96 04/13/20 02:30 67 18 96/64 L 95 04/13/20 02:00 65 15 95/67 L 95 04/13/20 01:30 64 15 98/58 L 97 04/13/20 01:00 67 22 95/61 L 93 04/13/20 00:51 66 17 90/67 L 95 04/13/20 00:30 66 14 90/67 L 96 04/13/20 00:00 62 13 97/59 L 95 04/12/20 23:30 62 13 99/59 L 97 04/12/20 23:00 66 16 102/62 97 04/12/20 22:30 64 22 106/63 94 04/12/20 22:16 72 20 104/62 98 04/12/20 22:00 63 19 98/61 L 96 04/12/20 21:45 65 18 96/63 L 97 04/12/20 21:30 70 18 96/55 L 96 04/12/20 21:15 64 20 99/65 L 96 04/12/20 21:00 65 18 96/60 L 95 04/12/20 20:45 75 20 99/62 L 94 04/12/20 20:31 75 20 113/59 L 95 04/12/20 20:15 81 19 91/66 L 95 04/12/20 20:00 68 18 93/65 L 96 Laboratory Results 04/13/20 05:10 04/13/20 05:10 Diagnostic Findings Echocardiogram from yesterday showed an EF of 50 to 55%. Regional wall motion abnormalities noted with hypokinetic posterior wall and moderately hypokinetic basal lateral wall. Right ventricle was dilated with borderline reduced right ventricular systolic function. Trace MR was noted. No pericardial effusion Coding Level of Care Code 22249 Subseq Hosp Care Lvl 3 Diagnoses Admitted to intensive care unit Z78.9 STEMI (ST elevation myocardial infarction) I21.3 Cardiogenic shock R57.[address] scan of lung R91.8
[2020-04-13] MEDS: TICAGRELOR 90 MG TAB PO SCH ×2 (08:00→21:16)
[2020-04-13] MEDS: POTASSIUM CHLORIDE CRTAB 20 MEQ TABCR PO SCH ×2 (08:00→12:10)
[2020-04-13] MEDS: ATORVASTATIN 40 MG TAB PO SCH (08:01)
[2020-04-13] MEDS: ASPIRIN 81 MG ECTAB PO SCH (08:02)
--- NOTE | 2020-04-13 08:39 | Hospitalist Progress Note ---
Date of Service April 13, 2020 Assessment & Plan (1) STEMI (ST elevation myocardial infarction): S/p 2 MARITA on 04/11/[address] [place]. - Continue DAPT - Presently on low-dose beta-johanna - Continue statin - Post-cath complicated by AIVR and continued pressor need - Remain in ICU for now. (2) Cardiogenic shock: Patient was noted to have hypotension during procedure, was initially able to be titrated off of Levophed while in the cath suite. After admission to the ICU, patient again became hypotensive, and required reinitiation of Levophed. - Wean as able - Transfer out of ICU when off pressors (3) CAD (coronary artery disease): CAD/STEMI/coronary artery stent placement x2. - As above (4) DVT prophylaxis: SCDs - Low DVT risk per admission calculator Admission and Anticipated Discharge Date Admission Date: April 11, 2020 Subjective No concerns today. He is doing well. Reports no fevers/chills, chest pain, shortness of breath, abdominal pain, nausea, or vomiting. Physical Exam Constitutional: WD/WN, vitals as above Eyes: EOM intact bilaterally; no conjunctival abnormality ENMT: external ear and nose normal, oropharynx normal Neck: trachea midline, no thyromegaly normal visual inspection Respiratory: normal respiratory effort, lungs clear to auscultation no respiratory distress Cardiovascular: RRR, no murmur, no edema Gastrointestinal (Abdomen): Inspection/Auscultation: abdomen normal to inspection; abdomen not distended Musculoskeletal: no cyanosis or clubbing, extremities motor strength 5/5 Skin: no rashes, warm and dry Neurologic: moves all extremities and awake Psychiatric: Orientation: alert, oriented to person and cooperative Results & Data Results & Data ([facility]) Vital Signs (Past 12 Hours) Vital Signs Temp Pulse Resp BP Pulse Ox 04/13/20 06:30 65 22 82/53 L 96 04/13/20 06:27 61 14 87/53 L 95 04/13/20 06:00 69 19 83/54 L 96 04/13/20 05:31 36.9 C 75 23 83/59 L 94 04/13/20 05:00 67 15 89/53 L 93 04/13/20 04:30 64 13 96/59 L 95 04/13/20 03:30 63 17 97/61 L 96 04/13/20 03:00 64 19 91/59 L 96 04/13/20 02:30 67 18 96/64 L 95 04/13/20 02:00 65 15 95/67 L 95 04/13/20 01:30 64 15 98/58 L 97 04/13/20 01:00 67 22 95/61 L 93 04/13/20 00:51 66 17 90/67 L 95 04/13/20 00:30 66 14 90/67 L 96 04/13/20 00:00 62 13 97/59 L 95 04/12/20 23:30 62 13 99/59 L 97 04/12/20 23:00 66 16 102/62 97 04/12/20 22:30 64 22 106/63 94 04/12/20 22:16 72 20 104/62 98 04/12/20 22:00 63 19 98/61 L 96 04/12/20 21:45 65 18 96/63 L 97 04/12/20 21:30 70 18 96/55 L 96 04/12/20 21:15 64 20 99/65 L 96 04/12/20 21:00 65 18 96/60 L 95 04/12/20 20:45 75 20 99/62 L 94 PG Care Time/CCT Total # of Minutes Spent Total Time Spent with Patient: Total time spent is greater than 50% in coordination of care (as documented) at patient's floor/unit and/or counseling patient: Coding Level of Care Code 57560 Subseq Hosp Care Lvl 2 Diagnoses STEMI (ST elevation myocardial infarction) I21.3 Cardiogenic shock R57.0 CAD (coronary artery disease) I25.10 DVT prophylaxis Z29.9
[2020-04-13] MEDS ORDERED: SODIUM CHLORIDE 0.9% 500 ML IV ONE (14:00)
--- NOTE | 2020-04-13 14:13 | Cardiology Progress Note ---
Date of Service April 13, 2020 Assessment & Plan (1) STEMI (ST elevation myocardial infarction): -- Post primary PCI with MARITA to ostial circumflex 2. Severe non-culprit CAD -- MARITA to ostial D1 3. Cardiogenic shock 4. Ischemic cardiomyopathy -- EF 45%, severe posterior hypokinesis. 4. Ventricular arrhythmias 5. Dyslipidemia 6. Borderline A1c 7. Question of chest lymphoma post XRT Looks well and is chest pain free. Maintaining borderline blood pressures off norepinephrine today No additional ectopy overnight. No signs of heart failure on exam. Can discontinue IV amiodarone Continue trial of low-dose metoprolol 12.5 daily Okay with systolic pressures in the 80s. Avoid restarting norepinephrine. Agree with additional IV fluid bolus if BPs trend down -- Continue DAPT with ASA/Ticagrelor -- Continue current statin We will try to add BUCKY as an outpatient. From a cardiac standpoint okay with transfer to telemetry today. Patient very much wants to go home tomorrow. Okay if blood pressure stable off pressors and electrically stable. Follow-up with me in 1 week. Admission and Anticipated Discharge Date Admission Date: April 11, 2020 Subjective Feeling well. No chest pain. No shortness of breath. Norepinephrine stopped this morning. Maintaining blood pressures in the 80s after 500 cc bolus. Telemetry reviewedno additional ventricular ectopy Review of Systems Review of Systems: All systems reviewed & are unremarkable except as noted in HPI & below Physical Exam Physical Exam: General: Comfortable, no acute distress Eyes: Sclerae anicteric, extraocular movements intact HENT: Oropharynx clear mucous membranes moist Lungs: Clear to auscultation bilaterally, no rhonchi or wheezes Cardiac: Regular rate and rhythm, no murmurs. No JVD Abdomen: Soft, nontender Neuro: Nonfocal Psych: Alert orient x3, normal affect and mood Extremities/Vascular: -- 2+ radial bilaterally. No RT hematoma. -- No edema Results & Data ([facility]) Vital Signs (Past 12 Hours) Vital Signs Temp Pulse Resp BP Pulse Ox 04/13/20 06:30 65 22 82/53 L 96 04/13/20 06:27 61 14 87/53 L 95 04/13/20 06:00 69 19 83/54 L 96 04/13/20 05:31 98.4 F 75 23 83/59 L 94 04/13/20 05:00 67 15 89/53 L 93 04/13/20 04:30 64 13 96/59 L 95 04/13/20 03:30 63 17 97/61 L 96 04/13/20 03:00 64 19 91/59 L 96 04/13/20 02:30 67 18 96/64 L 95 PG Care Time/CCT Total # of Minutes Spent Total Time Spent with Patient: Total time spent is greater than 50% in coordination of care (as documented) at patient's floor/unit and/or counseling patient: Coding Level of Care Code 63343 Subseq Hosp Care Lvl 3 Diagnoses STEMI (ST elevation myocardial infarction) I21.3
[2020-04-13] MEDS: METOPROLOL TARTRATE 25 MG TAB PO SCH ×2 (15:11→15:54)
--- NOTE | 2020-04-13 21:38 | Electrocardiogram Report ---
Test Reason : Blood Pressure : / mmHG Vent. Rate : 085 BPM Atrial Rate : 085 BPM P-R Int : 132 ms QRS Dur : 094 ms QT Int : 354 ms P-R-T Axes : 060 006 078 degrees QTc Int : 421 ms Normal sinus rhythm Marked ST abnormality, possible anterseptal subendocardial injury Abnormal ECG No previous ECGs available Confirmed by Adolfo Berumen ([id number]) on 04/13/2020 9:38:21 PM Referred By: REFERRED SELF Confirmed By:Adolfo Berumen
--- NOTE | 2020-04-13 21:48 | Electrocardiogram Report ---
Test Reason : Blood Pressure : / mmHG Vent. Rate : 079 BPM Atrial Rate : 079 BPM P-R Int : 138 ms QRS Dur : 072 ms QT Int : 378 ms P-R-T Axes : 043 -16 042 degrees QTc Int : 433 ms Sinus rhythm with occasional Premature ventricular complexes Inferior infarct , age undetermined Abnormal ECG When compared with ECG of 11-APR-2020 18:45, (unconfirmed) Premature ventricular complexes are now Present Anterior ST depression is no longer present Inferior infarct is now Present Confirmed by Adolfo Berumen ([id number]) on 04/13/2020 9:48:13 PM Referred By: REFERRED SELF Confirmed By:Adolfo Berumen
--- NOTE | 2020-04-13 21:52 | Electrocardiogram Report ---
Test Reason : Blood Pressure : / mmHG Vent. Rate : 064 BPM Atrial Rate : 064 BPM P-R Int : 134 ms QRS Dur : 072 ms QT Int : 404 ms P-R-T Axes : 049 -07 044 degrees QTc Int : 416 ms Normal sinus rhythm Possible Inferior infarct (cited on or before 11-APR-2020) Abnormal ECG When compared with ECG of 11-APR-2020 21:58, (unconfirmed) Premature ventricular complexes are no longer Present Confirmed by Adolfo Berumen ([id number]) on 04/13/2020 9:52:32 PM Referred By: REFERRED SELF Confirmed By:Adolfo Berumen
[2020-04-14 05:12] LABS: Basophils # (auto) 0.04 K/uL (0-0.2); Basophils % (auto) 0.5 %; Eosinophils # (auto) 0.15 K/uL (0-0.5); Hematocrit (blood only) 38.7 % (42-52); Hemoglobin 12.1 g/dL (14.0-18.0); Immature Granulocytes # (auto) 0.02 K/uL (0.00-0.02); Immature Granulocytes % (auto) 0.3 %; Lymphocytes # (auto) 1.06 K/uL (1.2-3.4); Mean Corpuscular Hemoglobin 26.9 pg (25-34); Mean Corpuscular Hgb Conc 31.3 g/dL (32-36); Mean Platelet Volume 10.1 fL (7.4-10.4); Monocytes # (auto) 0.65 K/uL (0.11-0.59); Monocytes % (auto) 8.6 %; Neutrophils # (auto) 5.64 K/uL (1.4-6.5); Neutrophils % (auto) 74.6 %; Platelet Count 169 K/uL (130-400); RDW Coefficient of Variation 14.2 % (11.5-14.5); RDW Standard Deviation 44.8 fL (36.4-46.3); White Blood Count 7.56 K/uL (4.8-10.8)
[2020-04-14 05:38] LABS: BUN Creatinine Ratio 14.5 (10-20); Calcium 8.4 mg/dl (8.5-10.1); Creatinine Clr Calc Pharmacy 117.5 ml/min; Est GFR (African American) 115.1; Est GFR (Non-African American) 99.4; Magnesium 2.2 mg/dl (1.8-2.4); Phosphorus 3.6 mg/dl (2.5-4.9); Potassium 3.8 mmol/L (3.5-5.1)
[2020-04-14] MEDS: ICU ELECTROLYTE REPLACEMENT PROTOCOL SCH (06:34)
[2020-04-14] MEDS: NOREPINEPHRINE/D5W 8 MG/508 ML BAG IV SCH (07:31)
[2020-04-14] MEDS: ASPIRIN 81 MG ECTAB PO SCH (07:32)
[2020-04-14] MEDS: ATORVASTATIN 40 MG TAB PO SCH (07:32)
[2020-04-14] MEDS: TICAGRELOR 90 MG TAB PO SCH (07:32)
--- NOTE | 2020-04-14 07:48 | Critical Care Progress Note ---
Date of Service April 14, 2020 Assessment & Plan (1) Admitted to intensive care unit: Impression: 54-year-old male presenting with acute myocardial infarction status post drug-eluting stent to the circumflex and first diagonal. Is been mildly hypotensive since returning to the ICU but is having no chest pain. He has had some brief runs of nonsustained VT, likely secondary to reperfusion. He is requiring low-dose vasopressors Recommendations: 1. Acute [place]: Continue aspirin and Brilinta. Troponin has peaked at 89 and is now downtrending. Statins have been ordered. He is ordered an BUCKY inhibitor and beta-johanna and judiciously starting based on blood pressure. Will need cardiac rehab discharge. Now off pressors and doing well. 2. Reperfusion arrhythmia: We will continue to follow. Amiodarone now discontinued 3. CT of the chest was obtained and the previously suspected pulmonary nodule on the chest x-ray was found to be confluence of shadows. No additional imaging indicated 4. Leukocytosis: Now resolved. Suspect reactive to acute [place]. 5. Hemoglobin A1c mildly elevated at 6. Will order certified adaptive physical educator to evaluate the patient. Diet controlled. Will need to be followed up with his primary care provider. If glycemic control becomes problematic, sliding scale insulin will be initiated. 6. Hypotension: Tolerating systolic blood pressures of 85 as the patient is asymptomatic. Off pressors and okay to transfer to the floor Okay to dismiss from the ICU. Ultimate disposition per medicine service and cardiology. (2) STEMI (ST elevation myocardial infarction): (3) Cardiogenic shock: (4) Abnormal CT scan of lung: Admission and Anticipated Discharge Date Admission Date: April 11, 2020 Subjective Patient seen and examined. Discussed with critical care nurse at bedside. Patient is doing well. Has been off pressors since yesterday morning. He is transiently dropped his blood pressure but did appear to respond to IV fluids. No additional arrhythmias noted. He is pain-free. He is tolerating a diet. No nausea vomiting or diarrhea. No palpitations. He does not report any significant shortness of breath. He is not had any sustained arrhythmias. Physical Exam Constitutional: WD/WN, vitals as above Neck: trachea midline, no thyromegaly Respiratory: normal respiratory effort, lungs clear to auscultation Cardiovascular: RRR, no murmur, no edema Gastrointestinal (Abdomen): normal bowel sounds, soft, nontender, no hepatosplenomegaly Musculoskeletal: Extremities: extremities normal to inspection Skin: no rashes, warm and dry Lymphatic: no cervical lymphadenopathy Results & Data Results & Data ([facility]) Vital Signs (Past 12 Hours) Vital Signs Temp Pulse Resp BP Pulse Ox 04/14/20 06:00 64 16 95 04/14/20 05:00 67 17 87/52 L 95 04/14/20 04:00 36.8 C 69 21 87/60 L 94 04/14/20 03:00 67 26 H 82/52 L 94 04/14/20 02:43 75 15 85/54 L 96 04/14/20 02:00 68 16 85/55 L 95 04/14/20 01:00 70 23 83/57 L 94 04/14/20 00:09 71 04/14/20 00:05 36.8 C 71 23 90/54 L 96 04/13/20 23:00 73 12 98/61 L 97 Laboratory Results 04/14/20 04:44 04/14/20 04:44 Diagnostic Findings No new imaging Coding Level of Care Code 87404 Subseq Hosp Care Lvl 2 Diagnoses Admitted to intensive care unit Z78.9 STEMI (ST elevation myocardial infarction) I21.3 Cardiogenic shock R57.[address] scan of lung R91.8
[2020-04-14] MEDS: METOPROLOL TARTRATE 25 MG TAB PO SCH (08:29)
--- NOTE | 2020-04-14 12:54 | Cardiology Progress Note ---
Date of Service April 14, 2020 Assessment & Plan (1) STEMI (ST elevation myocardial infarction): -- Post primary PCI with MARITA to ostial circumflex 2. Severe non-culprit CAD -- MARITA to ostial D1 3. Cardiogenic shock 4. Ischemic cardiomyopathy -- EF 45%, severe posterior hypokinesis. 4. Ventricular arrhythmias 5. Dyslipidemia 6. Borderline A1c 7. Question of chest lymphoma post XRT Looks well and is chest pain free. Has maintained borderline blood pressures off norepinephrine No additional ectopy overnight. From a cardiac standpoint okay with discharge today. Cardiac meds on discharge DAPT with aspirin 81, ticagrelor 90 mg twice daily Toprol 12.5 mg daily Atorvastatin 80 mg daily We will try to add BUCKY as an outpatient. Follow-up with me in 1 to 2 weeks Admission and Anticipated Discharge Date Admission Date: April 11, 2020 Subjective Feeling well today. No chest pain, no shortness of breath, no palpitations, no presyncope. Telemetry reviewedno events. Blood pressure stable off norepinephrine Review of Systems Review of Systems: All systems reviewed & are unremarkable except as noted in HPI & below Physical Exam Physical Exam: General: Comfortable, no acute distress Eyes: Sclerae anicteric, extraocular movements intact HENT: Oropharynx clear mucous membranes moist Lungs: Clear to auscultation bilaterally, no rhonchi or wheezes Cardiac: Regular rate and rhythm, no murmurs. No JVD Abdomen: Soft, nontender Neuro: Nonfocal Psych: Alert orient x3, normal affect and mood Extremities/Vascular: -- 2+ radial bilaterally. No RT hematoma. -- No edema Results & Data ([facility]) Vital Signs (Past 12 Hours) Vital Signs Temp Pulse Pulse Resp BP BP Pulse Ox 04/14/20 11:35 98.2 F 86 14 85/62 L 96 04/14/20 11:00 69 98 04/14/20 10:30 67 95 04/14/20 10:00 64 97 04/14/20 09:30 64 96 04/14/20 09:00 63 15 97 04/14/20 08:30 73 14 96 04/14/20 08:05 80 16 96 04/14/20 07:35 73 25 H 94/51 L 95 04/14/20 07:30 71 19 96 04/14/20 07:00 71 20 96 04/14/20 06:45 72 14 95 11/28/20 06:00 64 16 95 04/14/20 05:00 67 17 87/52 L 95 04/14/20 04:00 98.2 F 69 21 87/60 L 94 04/14/20 03:00 67 26 H 82/52 L 94 04/14/20 02:43 75 15 85/54 L 96 04/14/20 02:00 68 16 85/55 L 95 04/14/20 01:00 70 23 83/57 L 94 PG Care Time/CCT Total # of Minutes Spent Total Time Spent with Patient: Total time spent is greater than 50% in coordination of care (as documented) at patient's floor/unit and/or counseling patient: Coding Level of Care Code 08995 Subseq Hosp Care Lvl 3 Diagnoses STEMI (ST elevation myocardial infarction) I21.3
--- NOTE | 2020-04-14 16:52 | Discharge Summary ---
Date of Service April 14, 2020 Admission HPI Per Admitting Provider The patient is a 54-year-old male with no significant past medical history, who presented to the emergency department as noted above. He did receive aspirin and 1 nitroglycerin sublingual in route. EKG did suggest an acute KS, heart alert was called, and patient was taken to the [facility] by interventionalist Dr. Romeo Colorado. Principal Diagnosis STEMI Discharge Exam Constitutional WD/WN, vitals as above Eyes EOM intact bilaterally; no conjunctival abnormality ENMT external ear and nose normal, oropharynx normal Neck trachea midline, no thyromegaly normal visual inspection Respiratory normal respiratory effort, lungs clear to auscultation no respiratory distress Cardiovascular RRR, no murmur, no edema Gastrointestinal (Abdomen) Inspection/Auscultation: abdomen normal to inspection; abdomen not distended Musculoskeletal no cyanosis or clubbing, extremities motor strength 5/5 Skin no rashes, warm and dry Neurologic moves all extremities and awake Psychiatric Orientation: alert, oriented to person and cooperative Discharge Data Allergies Allergy/AdvReac Type Severity Reaction Status Date / Time No Known Allergies Allergy Verified 10/04/19 10:09 Consultations 04/11/20 19:27 ED Decision to Admit Stat 04/11/20 21:10 Consult Cardiac Rehabilitation Routine Consult Case Management - Discharge Planning Routine Consult Mandarin Speaking Nanny Routine Procedures Performed Operation Date: 04/11/20 19:30 Actual Procedures p Cath, Left with Cors and Vent - Jarrett Colorado MD s Cineradiography w/Routine Exam - Jarrett Colorado MD s IVUS Coronary Single Vessel - Jarrett Colorado MD s IVUS Coronary each ADDL Vessel - Jarrett Colorado MD s Aspiration/PCI w/MARITA for Stemi - Jarrett Colorado MD s Drug Eluting Stent each ADDTL Vessel - Jarrett Colorado MD Ordered Studies 04/11/20 19:11 CL Cath Imgs for PACS use only Stat 04/12/20 08:10 CT chest wo con Routine Hospital Course (1) STEMI (ST elevation myocardial infarction): S/p 2 MARITA to the LCx and D1 on 04/11/[address] Colorado. EF on discharge was 50-55%. Posterior wall was severely hypokinetic from base to mid-ventricle. Basal lateral wall also moderately hypokinetic. - Continue DAPT x 1 year (importance of this was emphasized to the patient) - Initiated low-dose beta-johanna - Continue statin - Follow up with Dr. Colorado in 1 week. (2) Cardiogenic shock: Patient was noted to have hypotension during procedure, was initially able to be titrated off of Levophed while in the cath suite. After admission to the ICU, patient again became hypotensive, and required reinitiation of Levophed. - Weaned off by 04/13 - Blood pressure was still on the soft side on discharge (85/60), but no signs/symptoms of ischemia or poor perfusion. Ok'd by ICU team and cardiology for discharge. (3) CAD (coronary artery disease): CAD/STEMI/coronary artery stent placement x2. - As above (4) DVT prophylaxis: SCDs - Low DVT risk per admission calculator Total Time Total Time Spent Total Time Spent (In Minutes): 35 Discharge Plan Discharge Items Patient Disposition: Home - Self-Care Reason For Visit: CHEST PAIN Discharge Diagnosis: ST-elevation KS (heart attack) Activity: Resume your previous activity Non-emergency contact: Primary Care Provider and Substance Addiction Coordinator Call non-emergency contact if: your symptoms worsen Follow-up/Referrals: Jarrett Colorado MD [Physician] - (Please see Dr. Colorado in 1 week.) PCP,NO [Primary Care Provider] - Diet: Heart Healthy Addtl Attending Provider Instructions: Mr. Daniel, You were admitted to the hospital with a heart attack. You had to go immediately to the [facility] and get 2 stents in your heart to keep it beating. You will need to be on a baby aspirin (81 mg) once a day and the Brillinta twice a day for 1 year to help the stents heal and keep your heart healthy. If you skip/stop these medications without Dr. Colorado's approval, it could cause the stents to close up, causing another heart attack. We are also starting you on: 1) Metoprolol - This is meant to help lower stress on your heart. It has been shown to keep hearts healthy with long-term use. 2) Atorvastatin - This is a cholesterol medication that helps reduce your risk of any further heart attacks. Finally, we are sending you some nitroglycerin tabs to take if you have occasional chest pains. Before taking one, sit down and prop your feet up. Take a tab and see if it helps your chest pain. If you need to take a second one after about 5 minutes. If you need to take a 3rd, please go to the hospital or call 9--1. If you have any medication issues or chest pain, don't hesitate to call his office. He would like to see you in one week to check on how your heart is doing and how you feel. Pending Studies at Discharge: No Stand-Alone Forms: [facility], Smoking Cessation Medications and DC Order Prescriptions: New atorvastatin 40 mg Tablet 80 mg PO HS Qty: 30 RF: 0 nitroglycerin [Nitrostat] 0.4 mg Tablet, Sublingual 0.4 mg sublingual PRN PRN (Reason: chest pain) Qty: 30 RF: 0 Brilinta 90 mg Tablet 90 mg PO BID Qty: 60 RF: 0 aspirin 81 mg Tablet,Delayed Release (Dr/Ec) 81 mg PO QAM Qty: 30 RF: 0 metoprolol succinate 25 mg tablet extended release 24 hr 12.5 mg PO DAILY Qty: 30 RF: 0 No Action No Known Home Medications RF: 0 Discharge Orders: Discharge Order (Routine); Ordered 04/14/20 Ordered By: Minh Braxton/Other Patient Handouts: Eating Heart-Healthy Foods, A1C Admission Data Admit Date/Time: 04/11/20 21:10 Attending Provider: Minh Schaefer Admit Provider: Jarrett Colorado Primary Care Provider: PCP,NO Other Providers: Paulino Daniel ; Minh Schaefer Other Interventions: Discharge Summary Assessment (RN) Last Done: 04/14/20 11:35 Coding Level of Care Code D/C Day Management >30 mins Diagnoses STEMI (ST elevation myocardial infarction) I21.3 Cardiogenic shock R57.0 CAD (coronary artery disease) I25.10 DVT prophylaxis Z29.9
== END 2020-04-14 12:19 | disposition home or self-care (01) | DRG 246 ==
LOC: ED 18:39 → CC 19:20 → 1E 21:10 → SUATTDRO 21:10